=== PATIENT | male | born 1945 | race Caucasian/White ===

== ENCOUNTER 2018-10-17 23:48 | Emergency (ER) | payer OTHER, MEDICARE ==
[2018-10-17] MEDS ORDERED: EPINEPHrine 1 MG/10 ML SYR IV ONE (23:49)
--- NOTE | 2018-10-18 00:28 | ER ---
Nurse's Notes [facility] Name: Lj Grover Age: 73 yrs Sex: Male : 1945 Arrival Date: 10/17/2018 Time: 23:58 Bed 2 Private MD: Diagnosis: Cardiac arrest Presentation: 10/17 23:50 Presenting complaint: EMS states: that they were told pt went to bed last night at 2200 fc and was ok. When went to check on him later he had snoring respirations. EMS was called. P.D. showed up first and started CPR and shocked pt x 1. Then EMS arrived and pt was intubated, iv's started, shocked x 4, Epi, x 4, Ami IVP, Na Bicarb and NS. Care prior to arrival: Assisted ventilation, Oral intubation, CPR via thumper and is still in progress Medication(s) given: Epi x 4, Amiodarone 300 mg IVP, Na Bicarb x 1 amp and NS 200 ml IV initiated. 20 gauge to left a/c and 18 gauge to right a/c Glucose check: 94 Oxygen administered. via AMBU bag Shocked x 4. Compressions began prior to arrival. 23:50 Method Of Arrival: EMS: [facility] 23:50 Acuity: ROBERTO 1 fc Historical: - Allergies: 10/18 00:27 No Known Allergies; fc - Home Meds: 00:27 albuterol sulfate 90 mcg/actuation Inhl HFAA 2 puffs qid prn [Active]; ascorbic acid fc (vitamin C) 500 mg tab daily [Active]; aspirin 81 mg Oral chew 1 tab once daily [Active]; atorvastatin 40 mg oral tab 1 tab nightly [Active]; carboxymethylcellulose sodium ophthalmic ophthalmic 1 drop four times a day [Active]; cetirizine 10 mg oral tab 1 tab once daily [Active]; cyclobenzaprine 10 mg Oral tab 1 tab nightly [Active]; finasteride 5 mg oral tab 1 tab once daily [Active]; fluticasone inhalation inhalation 1 puff 2 times per day [Active]; isosorbide mononitrate 60 mg Oral Tb24 1 tab twice a day [Active]; losartan 50 mg oral tab 1 tab once daily [Active]; magnesium oxide 420 mg Oral tab nightly [Active]; metformin 500 mg Oral tab 1 tab 2 times per day [Active]; metoprolol tartrate 100 mg Oral tab 1 tab once daily [Active]; naproxen 500 mg Oral tab 1 tab bid prn [Active]; ranolazine oral 1000 mg oral 1 tab 2 times per day [Active]; sertraline 50 mg oral tab 1 tab once daily [Active]; trazodone 100 mg Oral tab 1 tab nightly [Active]; - PMHx: 00:27 Diabetes - NIDDM; Hypertension; Myocardial infarction; High Cholesterol; BPH; fc Depression; - PSHx: 00:27 Heart stents; CABG; fc - Immunization history:: Last tetanus immunization: unknown. - Social history:: Smoking status: unknown. - Ebola Screening: : Patient negative for fever greater than or equal to 101.5 degrees Fahrenheit, and additional compatible Ebola Virus Disease symptoms Patient denies exposure to infectious person Patient denies travel to an Ebola-affected area in the 21 days before illness onset. Assessment: 10/17 23:58 Pain: Unable to use pain scale. Patient is unresponsive. Neuro: Level of Consciousness aa1 is unresponsive. Cardiovascular: Heart tones absent. Respiratory: Respiratory pattern is agonal Breath sounds are absent bilaterally. GI: Abdomen is round. Derm: Skin is intact, Skin is dry, Skin is normal, Skin temperature is warm. 10/18 01:00 Reassessment: Spoke with Kate Guzman with [facility]; . aa1 Vital Signs: 10/17 23:58 Pulse 0; Resp 0; aa1 ED Course: 23:50 Patient arrived in ED. aa1 23:50 Patient has correct armband on for positive identification. Bed in low position. Call light in reach. 23:58 No provider procedures requiring assistance completed. aa1 23:59 Daniel Pena MD is Attending Physician. tw4 10/18 00:19 Triage completed. 00:26 Daniel Pean MD is Pronouncing Provider. tw4 00:46 Liset Castillo, RN is Primary Nurse. aa1 Administered Medications: 10/17 23:50 Drug: EPINEPHrine 0.1mg/mL 1:10,000 1 mg {Note: per Liset AGUILERA.} Route: IVP; Site: left fc antecubital; 23:53 Drug: EPINEPHrine 0.1mg/mL 1:10,000 1 mg {Note: per Liset RN.} Route: IVP; Site: left fc antecubital; 23:56 Drug: EPINEPHrine 0.1mg/mL 1:10,000 1 mg {Note: per Liset RN.} Route: IVP; Site: left fc antecubital; Outcome: 23:58 Patient : Time of 23:58 Pronounced by Daniel Pena MD aa1 23:58 Condition: 23:58 Outcome Patient aa1 06 02:04 Patient left the ED. aa1 Signatures: Liset Castillo RN RN aa1 Vianney Carter RN RN Barbra Olivera am2 Daniel Pena MD MD tw4 Corrections: (The following items were deleted from the chart) 00:22 06/07 23:58 Patient arrived in ED. am2 aa1
--- NOTE | 2018-10-19 02:08 | EDPHYS ---
Physician Documentation [facility] Name: Lj Grover Age: 73 yrs Sex: Male : 1945 Arrival Date: 10/17/2018 Time: 23:58 Bed 2 Private MD: ED Physician Daniel Pena HPI: 10/18 06:02 This 73 yrs old Male presents to ER via EMS with complaints of CPR. tw4 06:02 Preceding the arrest, the patient was dyspneic. The arrest occurred at home. tw4 Pre-hospital course: The arrest was witnessed Bystanders at the scene did not perform CPR. EMS care prior to arrival: initiation of ACLS, peripheral IV, was successfully placed. intubation was successfully performed, ACLS details: Initial rhythm was PEA. The presenting rhythm is asystole. Airway:. The patient has not experienced similar symptoms in the past. Historical: - Allergies: 00:27 No Known Allergies; fc - Home Meds: 00:27 albuterol sulfate 90 mcg/actuation Inhl HFAA 2 puffs qid prn [Active]; ascorbic acid fc (vitamin C) 500 mg tab daily [Active]; aspirin 81 mg Oral chew 1 tab once daily [Active]; atorvastatin 40 mg oral tab 1 tab nightly [Active]; carboxymethylcellulose sodium ophthalmic ophthalmic 1 drop four times a day [Active]; cetirizine 10 mg oral tab 1 tab once daily [Active]; cyclobenzaprine 10 mg Oral tab 1 tab nightly [Active]; finasteride 5 mg oral tab 1 tab once daily [Active]; fluticasone inhalation inhalation 1 puff 2 times per day [Active]; isosorbide mononitrate 60 mg Oral Tb24 1 tab twice a day [Active]; losartan 50 mg oral tab 1 tab once daily [Active]; magnesium oxide 420 mg Oral tab nightly [Active]; metformin 500 mg Oral tab 1 tab 2 times per day [Active]; metoprolol tartrate 100 mg Oral tab 1 tab once daily [Active]; naproxen 500 mg Oral tab 1 tab bid prn [Active]; ranolazine oral 1000 mg oral 1 tab 2 times per day [Active]; sertraline 50 mg oral tab 1 tab once daily [Active]; trazodone 100 mg Oral tab 1 tab nightly [Active]; - PMHx: 00:27 Diabetes - NIDDM; Hypertension; Myocardial infarction; High Cholesterol; BPH; fc Depression; - PSHx: 00:27 Heart stents; CABG; fc - Immunization history:: Last tetanus immunization: unknown. - Social history:: Smoking status: unknown. - Ebola Screening: : Patient negative for fever greater than or equal to 101.5 degrees Fahrenheit, and additional compatible Ebola Virus Disease symptoms Patient denies exposure to infectious person Patient denies travel to an Ebola-affected area in the 21 days before illness onset. ROS: 06:02 Unable to obtain ROS due to comatose state, patient is on ventilator. tw4 Exam: 06:02 Constitutional: The patient appears comatose. tw4 06:02 Eyes: Pupils: are fixed and dilated. 06:02 Cardiovascular: CPR IN PROGRESS. 06:02 Respiratory: intubated. 06:02 Skin: Appearance: Color: dusky, pale. 06:02 Neuro: Mentation: unable to test, the patient is comatose. Vital Signs: 10/17 23:58 Pulse 0; Resp 0; aa1 Procedures: 10/18 06:02 CPR: See CPR flow sheet. Initial patient assessment: unresponsive, pupils fixed \T\ tw4 dilated, pale, intubated, mechanical ventilation, pulses present w/ compressions, The presenting cardiac rhythm is PEA. the patient was intubated prior to arrival, Compressions: began prior to arrival. at 23:24. Meds given: See Meds list. Epinephrine X 2, regained rhythm, briefly, despite ED evaluation and treatment, the patient . CPR was stopped at 23:58. MDM: 10/17 23:59 Patient medically screened. tw4 10/18 06:02 Differential diagnosis: arrythmia, cardiac arrest, respiratory arrest. Data reviewed: tw4 vital signs, nurses notes. Counseling: I had a detailed discussion with the patient and/or guardian regarding: the historical points, exam findings, and any diagnostic results supporting the discharge/admit diagnosis. Administered Medications: 10/17 23:50 Drug: EPINEPHrine 0.1mg/mL 1:10,000 1 mg {Note: per Liset AGUILERA.} Route: IVP; Site: left fc antecubital; 23:53 Drug: EPINEPHrine 0.1mg/mL 1:10,000 1 mg {Note: per Liset AGUILERA.} Route: IVP; Site: left fc antecubital; 23:56 Drug: EPINEPHrine 0.1mg/mL 1:10,000 1 mg {Note: per Liset AGUILERA.} Route: IVP; Site: left fc antecubital; Disposition: Patient pronounced on 10/17/18 23:58 by Daniel Pena. Impression: Cardiac arrest. - Released to Pilot. Signatures: Liset Castillo RN RN aa1 Vianney Carter RN RN Daniel Pena MD MD tw4 Corrections: (The following items were deleted from the chart) 10/18 02:04 00:27 10/18/2018 00:27 Patient pronounced on 10/17/2018 at 23:58 by Daniel Pena. aa1 Impression: Cardiac arrest. Released to Pilot. tw4
== END 2018-10-18 02:04 ==
LOC: ER 23:48
PROC: 5A02216 Assistance with Cardiac Output using Other Pump, Continuous (ICD-10-PCS; principal; 2018-10-18)
DX: I46.9 Cardiac arrest, cause unspecified (principal); E11.9 Type 2 diabetes mellitus without complications; I10 Essential (primary) hypertension; E78.00 Pure hypercholesterolemia, unspecified; I25.2 Old myocardial infarction; Z95.5 Presence of coronary angioplasty implant and graft
CPT/HCPCS: 92950; 96374; 99285; J0171